=== PATIENT | male | born 1995 | race Hispanic/Latino ===

== ENCOUNTER 2022-07-26 14:21 | Emergency (ER) | payer BC ==
[~2022-07-26] VITALS: Ht 162.6 cm; Wt 61.2 kg
[2022-07-26 15:09] VITALS: BP 122/76
[2022-07-26 15:30] VITALS: BP 123/93
[2022-07-26 15:45] LABS: URINE BILIRUBIN - DIPSTICK NEGATIVE (NEGATIVE); URINE BLOOD DIPSTICK NEGATIVE (NEGATIVE); URINE COLOR YELLOW; URINE GLUCOSE - DIPSTICK NEGATIVE (NEGATIVE); URINE KETONE TRACE mg/dL (NEGATIVE); URINE LEUK ESTERASE NEGATIVE (NEGATIVE); URINE PROTEIN - DIPSTICK TRACE mg/dL (NEG-TRACE); URINE SPECIFIC GRAVITY >=1.030; URINE UROBILINOGEN - DIPSTICK 0.2 E.U./dL (0.2)
[2022-07-26 15:47] LABS: URINE NITRITE - DIPSTICK NEGATIVE (Negative)
[2022-07-26 15:52] LABS: IMMATURE GRANULOCYTES 0.2 % (0.0-5.0); MEAN CELL VOLUME 85.6 fL CALC (80.0-100.0); MEAN CORPUSCULAR HGB 30.3 pG CALC (26.0-32.0); MEAN CORPUSCULAR HGB CONC 35.4 g/dL CAL (32.0-36.0); NEUT# 12.9 thou/uL (1.82-7.42); RED BLOOD COUNT 5.61 mill/uL (4.70-6.10); RED CELL DISTRI WIDTH 12.2 % (11.5-15.5)
[2022-07-26 16:20] LABS: ALBUMIN 5.4 g/dL (3.2-5.0); ALKALINE PHOSPHATASE 75 u/l (38-126); BILIRUBIN, TOTAL 0.9 mg/dL (0.0-1.4); BUN 16 mg/dL (9-20); BUN/CREATININE RATIO 19 (12-20 (CALC)); CARBON DIOXIDE 25 mmol/l (22-30); CHLORIDE 104 mmol/l (95-108); CREATININE 0.9 mg/dL (0.7-1.3); ETHYL ALCOHOL 0 mg/dl (0-30); GFR FOR AFR.AMER. > 60 ML/MIN (>=60 (CALC)); GFR OTHER RACES > 60 ML/MIN (>=60 (CALC)); SGOT/AST 33 u/l (17-59); SODIUM 144 mmol/l (137-146); TOTAL PROTEIN 9.2 g/dL (6.3-8.2)
[2022-07-26 16:23] LABS: ANION GAP 18 (6-22 (CALC)); POTASSIUM 3.3 mmol/l (3.5-5.1)
[2022-07-26 16:30] VITALS: BP 128/78
[2022-07-26 16:40] LABS: CPK 88 u/l (52-200)
[2022-07-26 17:01] VITALS: BP 139/84
[2022-07-26 17:51] VITALS: BP 139/84
== END 2022-07-26 18:05 | disposition home or self-care (01) | DRG 312 ==
LOC: ED 14:21
PROVIDERS: Family Medicine
DX: R55 Syncope and collapse (principal); R51.9 Headache, unspecified; S00.81XA Abrasion of other part of head, initial encounter; V18.0XXA Pedal cycle driver injured in noncollision transport accident in nontraffic accident, initial encounter

== ENCOUNTER 2024-10-03 13:02 | Emergency (ER) | payer SELFPAY ==
[2024-10-03] VITALS (12 sets, daily range): BP systolic 104–124; BP diastolic 66–82
[~2024-10-03] VITALS: Ht 162.6 cm; Wt 69.0 kg
[2024-10-03] MEDS ORDERED: LACTATED RINGER'S 1,000 ML IV ONE (13:25)
[2024-10-03 13:40] LABS: BASO% 0.6 % (0-3); EOS% 1.8 % (0-8); HEMATOCRIT 45.4 % (39.0-50.0); HEMOGLOBIN 15.5 g/dl (14.0-18.0); IMMATURE GRANULOCYTES 0.2 % (0.0-5.0); LYMPH% 33.5 % (15-41); MEAN CELL VOLUME 86.8 fL CALC (80.0-100.0); MEAN CORPUSCULAR HGB 29.6 pG CALC (26.0-32.0); MEAN CORPUSCULAR HGB CONC 34.1 g/dL CAL (32.0-36.0); MONO% 7.1 % (2-13); NEUT# 3.69 thou/uL (1.82-7.42); NEUT% 56.8 % (42-76); RED BLOOD COUNT 5.23 mill/uL (4.70-6.10)
[2024-10-03 13:57] LABS: ALBUMIN 4.8 g/dL (3.2-5.0); CREATININE 0.9 mg/dL (0.7-1.3); POTASSIUM 3.6 mmol/l (3.5-5.1); TOTAL PROTEIN 7.8 g/dL (6.3-8.2)
[2024-10-03 14:00] LABS: BILIRUBIN, TOTAL 1.3 mg/dL (0.2-1.3)
[2024-10-03 15:08] LABS: URINE BILIRUBIN - DIPSTICK Negative (NEGATIVE); URINE BLOOD DIPSTICK Negative (NEGATIVE); URINE GLUCOSE - DIPSTICK Negative (NEGATIVE); URINE KETONE Negative (NEGATIVE); URINE LEUK ESTERASE Negative (NEGATIVE); URINE NITRITE - DIPSTICK Negative (Negative); URINE PH 8.5 (4.5-8.0); URINE PROTEIN - DIPSTICK Negative (NEG-TRACE); URINE UROBILINOGEN - DIPSTICK 0.2 E.U./dL (0.2)
[2024-10-03 15:12] LABS: URINE COLOR Yellow
[2024-10-03] MEDS ORDERED: ORPHENADRINE CITRATE 30 MG/ML AMP IV ONE (15:55)
[2024-10-03] MEDS ORDERED: KETOROLAC TROMETHAMINE 30 MG/ML SDV IV ONE (15:55)
== END 2024-10-03 16:40 | disposition home or self-care (01) | DRG 312 ==
LOC: ED 13:02
PROVIDERS: Nurse Practitioner
PROC: 0HQ1XZZ Repair Face Skin, External Approach (ICD-10-PCS; principal; 2024-10-03)
DX: R55 Syncope and collapse (principal); S01.81XA Laceration without foreign body of other part of head, initial encounter; E86.0 Dehydration; W18.39XA Other fall on same level, initial encounter; Y92.410 Unspecified street and highway as the place of occurrence of the external cause
CPT/HCPCS: J2360